=== PATIENT | male | born 1965 | race Caucasian/White ===

== ENCOUNTER 2020-01-11 22:48 | Inpatient (IN) | payer OTHER ==
[~2020-01-11] VITALS: Ht 182.9 cm; Wt 99.8 kg
[2020-01-11 22:50] VITALS: BP 132/79
[2020-01-11] MEDS ORDERED: ASPI-630 PO (23:12)
[2020-01-11] MEDS ORDERED: ONDANSETRON PF 4 MG/2 ML VIAL. IVP PRN (23:30)
[2020-01-11] MEDS ORDERED: MORPHINE SULFATE 4 MG/ML VIAL. IV PRN (23:30)
[2020-01-11] MEDS: IV NORMAL SALINE 1000ML BAG 1,000 ML IV SCH (23:40)
[2020-01-12] VITALS (13 sets, daily range): BP systolic 117–160; BP diastolic 70–100
--- NOTE | 2020-01-12 00:01 | PDOC2 ---
CONSULT Date of Consult Date of Consult DATE: 01/11/20 TIME: 23:56 Reason for Consult Reason for Consult: perforated appendicitis Referring Physician Referring Physician: Dr. Woods, Dr. Mireles Identification/Chief Complaint Chief Complaint RLQ abd pain Source Source: Chart review, Patient History of Present Illness Reason for Visit: 54 yo M developed diffuse abd pain on 01/08. Pain gradually worsened and localized to RLQ, prompted ER visit today. Pt has noted eaten since 01/08 evening. Reports positive chills and pain with movement. No previous episodes. Past Medical History Cardiovascular: No pertinent hx Past Surgical History Past Surgical History: Other (vasectomy) Family History Family History: No Significant Social History No ALCOHOL: rare Current Medications Current Medications Current Medications Ondansetron HCl (Zofran) 4 mg PRN Q6HRS PRN IV NAUSEA/VOMITING; Start 01/12/20 at 07:00; Stop 01/13/20 at 06:59; Status UNV Fentanyl Citrate (Fentanyl 2ml Vial) 25 mcg PRN Q5MIN PRN IV MILD PAIN 1-3; Start 01/12/20 at 07:00; Stop 01/13/20 at 06:59; Status UNV Fentanyl Citrate (Fentanyl 2ml Vial) 50 mcg PRN Q5MIN PRN IV MODERATE TO SEVERE PAIN; Start 01/12/20 at 07:00; Stop 01/13/20 at 06:59; Status UNV Morphine Sulfate (Morphine Sulfate) 1 mg PRN Q10MIN PRN IV SEVERE PAIN 7-10; Start 01/12/20 at 07:00; Stop 01/13/20 at 06:59; Status UNV Ringer's Solution 1,000 ml @ 30 mls/hr Q24H IV ; Start 01/12/20 at 07:00; Stop 01/12/20 at 18:59; Status UNV Lidocaine HCl (Xylocaine-Mpf 1% 2ml Vial) 2 ml PRN 1X PRN ID PRIOR TO IV START; Start 01/12/20 at 07:00; Stop 01/13/20 at 06:59; Status UNV Hydromorphone HCl (Dilaudid) 0.5 mg PRN Q10MIN PRN IV SEV PAIN, Second choice; Start 01/12/20 at 07:00; Stop 01/13/20 at 06:59; Status UNV Prochlorperazine Edisylate (Compazine) 5 mg PACU PRN PRN IV NAUSEA, MRX1; Start 01/12/20 at 07:00; Stop 01/13/20 at 06:59; Status UNV Morphine Sulfate (Morphine Sulfate) 4 mg PRN Q4HRS PRN IV PAIN; Start 01/11/20 at 23:30; Status UNV Lorazepam (Ativan Inj) 2 mg PRN Q4HRS PRN IVP ANXIETY / AGITATION; Start 01/11/20 at 23:30; Status UNV Lorazepam (Ativan Inj) 1 mg PRN Q4HRS PRN IVP ANXIETY / AGITATION; Start 01/11/20 at 23:30; Status UNV Ondansetron HCl (Zofran) 4 mg PRN Q4HRS PRN IVP NAUSEA/VOMITING; Start 01/11/20 at 23:30; Status UNV Sodium Chloride 1,000 ml @ 100 mls/hr Q10H IV Last administered on 01/11/20at 23:40; Start 01/11/20 at 23:30; Status UNV Aspirin (Aspirin Chewable) 81 mg DAILY PO ; Start 01/12/20 at 09:00; Status UNV Active Scripts Active Reported Aspirin 81 Mg Tab.chew 81 Mg PO DAILY Allergies Allergies: Coded Allergies: No Known Drug Allergies (Unverified , 01/11/20) ROS General: YES: Chills Gastrointestinal: Yes Abdominal Pain Physical Exam General: Alert, Oriented X3, Cooperative, moderate distress HEENT: Atraumatic Lungs: Normal air movement Abdomen: Soft, Other (TTP RLQ, peritoneal sign) Extremities: No clubbing, No cyanosis Skin: No rashes, No breakdown Neuro: Normal speech, Sensation intact Psych/Mental Status: Mental status NL, Mood NL Vitals VITALS Vital Signs Date Time Temp Pulse Resp B/P (MAP) Pulse Ox O2 Delivery O2 Flow Rate FiO2 01/11/20 22:50 98.3 92 20 132/79 (96) 99 Room Air 98.[address] at [facility] c/w appendicitis, signs of perforation Assessment/Plan Assessment/Plan Perforated appendicitis IV abx (rocephin, flagyl) started. TO OR for urgent laparoscopic versus open appendectomy. R/R/B/A d/w pt. Risks, including, but not limited to: bleeding, infection, damage to surrounding structures, risk of anesthesia, risk of , risk of abscess. He appears to understand, his questions are answered and he elects to proceed. Thanks for consult! ELVIRA VANN MD January 12, 2020 00:01
[2020-01-12] MEDS ORDERED: BUPIVACAINE-EPI 0.5%-1:200000 MPF 30 ML VIAL. ONE (00:32)
[2020-01-12] MEDS ORDERED: LIDOCAINE 2% PF 5 ML VIAL. ONE (00:44)
[2020-01-12] MEDS ORDERED: DEXAMETHASONE SOD PHOS 4 MG/ML VIAL ONE (00:44)
[2020-01-12] MEDS ORDERED: PROPOFOL 10 MG/ML (20ML) VIAL. IV ONE (00:44)
[2020-01-12] MEDS ORDERED: SEVOFLURANE 61 TO 120 MINUTES. IH ONE (01:48)
[2020-01-12] MEDS ORDERED: GLYCOPYRROLATE 1 MG/5 ML VIAL. ONE (01:48)
[2020-01-12] MEDS ORDERED: cefTRIAXone IV Push 1 GM VIAL. IVP SCH ×2 (04:30→21:00)
[2020-01-12] MEDS ORDERED: HYDROcodone/APAP 5/325MG 1 TAB TABLET PO PRN (04:30)
[2020-01-12] MEDS ORDERED: IV RINGERS,LACTATED 1000ML 1,000 ML IV ONE (04:30)
[2020-01-12 04:57] LABS: BASO % 0 % (0-3); EOS % 0 % (0-3); HEMATOCRIT 42.6 % (39.0-53.0); HEMOGLOBIN 14.5 g/dL (13.0-17.5); LYMPH # 0.3 x10^3/uL (1.0-4.8); LYMPH % 4 % (24-48); MEAN CORPUSCULAR HEMOGLOBIN 32 pg (25-35); MEAN CORPUSCULAR HGB CONC 34 g/dL (31-37); MEAN CORPUSCULAR VOLUME 94 fL (79-100); MONO # 0.4 x10^3/uL (0.0-1.1); MONO % 5 % (0-9); NEUT # 7.2 x10^3/uL (1.8-7.7); NEUT % 91 % (31-73); PLATELET COUNT 181 x10^3/uL (140-400); RED BLOOD COUNT 4.54 x10^6/uL (4.30-5.70); RED CELL DISTRIBUTION WIDTH 13.1 % (11.5-14.5); WHITE BLOOD COUNT 7.9 x10^3/uL (4.0-11.0)
[2020-01-12 05:13] LABS: ALBUMIN 2.8 g/dL (3.4-5.0); ALBUMIN/GLOBULIN RATIO 0.7 (1.0-1.7); CREATININE 1.2 mg/dL (0.7-1.3); GFR 62.6; POTASSIUM 4.2 mmol/L (3.5-5.1); TOTAL BILIRUBIN 0.9 mg/dL (0.2-1.0)
--- NOTE | 2020-01-12 05:43 | NUR ---
Pt arrived to unit via EMS at approx 2245 transfer from [place]. Pt states that he is in pain but refuses pain medication. VS stable. Resting on RA. consents signed for surg. Pt takes no medications and has no prior medical hx. Call light in reach, reminded pt to call before ambulating, bed in low locked position. will continue to monitor.
[2020-01-12] MEDS ORDERED: fentaNYL PF VIAL 100 MCG/2 ML VIAL IV PRN ×2 (07:00)
[2020-01-12] MEDS ORDERED: PROCHLORPERAZINE 10 MG/2 ML VIAL. IV PRN (07:00)
[2020-01-12] MEDS ORDERED: LIDOCAINE 1% PF 2 ML VIAL. ID PRN (07:00)
[2020-01-12] MEDS ORDERED: MORPHINE SULFATE 2 MG/ML VIAL. IV PRN (07:00)
[2020-01-12] MEDS ORDERED: IV RINGERS,LACTATED 1000ML 1,000 ML IV SCH (07:00)
[2020-01-12] MEDS ORDERED: HYDROmorphone 2 MG/ML VIAL IV PRN (07:00)
[2020-01-12] MEDS ORDERED: ONDANSETRON PF 4 MG/2 ML VIAL. IV PRN (07:00)
[2020-01-12] MEDS ORDERED: ACETAMINOPHEN 325 MG TABLET. PO PRN (07:30)
[2020-01-12] MEDS ORDERED: METOPROLOL TARTRATE 5 MG/5 ML VIAL. IVP PRN (09:00)
--- NOTE | 2020-01-12 09:06 | PDOC2 ---
TRINIDAD BARRY IMMIGRATION OFFICER 01/12/20 0906: CARDIAC CONSULT DATE OF CONSULT Date of Consult DATE: 01/12/20 TIME: 08:40 REASON FOR CONSULT Reason for Consult: SVT, AFIB REFERRING PHYSICIAN Referring Physician: Chuck SOURCE Source: Chart review, Patient HISTORY OF PRESENT ILLNESS HISTORY OF PRESENT ILLNESS This is a pleasant 54 yo male admitted for complains of abdominal pain. He is an active individual who does [email or web address] work and also intermittently uses [employer]. No hx of heart disease or arrhythmia. 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 This went on fro 2 days with decreased appetite, increasing abdominal pain which became diffuse but no vomiting or diarrhea. He then started shivering and felt feverish and finally was [facility] by his and was noted clammy at that point and sweaty and noted with HR in the 190s and noted as AFIB. He converted back to SR. He was then noted with acute appendicitis with microperforation and transferred to [facility] for surgery. He then had another bout of AFIB RVR periop but spontaneously converted to SR. No prior hx of CAD, valvular disease, VTE. No hx of PUD. PAST MEDICAL HISTORY Past Medical History No pertinent history PAST SURGICAL HISTORY Past Surgical History: Other (vasectomy, colonoscopy) FAMILY HISTORY Family History: Coronary Artery Disease (father in his 60s) SOCIAL HISTORY Smoke: No ALCOHOL: occassional Drugs: None Lives: with Family CURRENT MEDICATIONS CURRENT MEDICATIONS Current Medications Medications (Trade) Dose Ordered Sig/Earnest Route PRN Reason Start Time Stop Time Status Last Admin Dose Admin Sodium Chloride 1,000 ml @ 100 mls/hr Q10H IV 01/11/20 23:30 01/11/20 23:40 Ringer's Solution 1,000 ml @ 100 mls/hr Q10H ONCE IV 01/12/20 04:30 01/12/20 14:29 01/12/20 03:00 Acetaminophen (Tylenol) 650 mg PRN Q6HRS PRN PO Fever 01/12/20 07:30 01/12/20 07:40 ALLERGIES ALLERGIES: Coded Allergies: No Known Drug Allergies (Unverified , 01/11/20) ROS Review of System 14 point ROS evaluated with pertinent positives noted per HPI PHYSICAL EXAM General: Alert, Oriented X3, Cooperative, No acute distress HEENT: Atraumatic, Mucous membr. moist/pink Lungs: Clear to auscultation, Normal air movement Heart: Regular rate (SR/ST), Normal S1, Normal S2, No murmurs Abdomen: Other (S/P Lap appe) Extremities: No cyanosis, No edema Skin: No breakdown, No significant lesion Neuro: Normal speech, Sensation intact Psych/Mental Status: Mental status NL, Mood NL MUSCULOSKELETAL: Osteoarthritic changes both hands VITALS/I&O VITALS/I&O: Vital Signs Date Time Temp Pulse Resp B/P (MAP) Pulse Ox O2 Delivery O2 Flow Rate FiO2 01/12/20 07:34 102.9 110 132/82 (99) 91 Nasal Cannula 1.0 102.9 01/12/20 02:50 18 I & O 01/11/20 01/11/20 01/12/20 15:00 23:00 07:00 Intake Total 200 ml Output Total 150 ml Balance 50 ml LABS Lab: Laboratory Tests Test 01/12/20 04:30 White Blood Count 7.9 x10^3/uL (4.0-11.0) Red Blood Count 4.54 x10^6/uL (4.30-5.70) Hemoglobin 14.5 g/dL (13.0-17.5) Hematocrit 42.6 % (39.0-53.0) Mean Corpuscular Volume 94 fL (79-100) Mean Corpuscular Hemoglobin 32 pg (25-35) Mean Corpuscular Hemoglobin Concent 34 g/dL (31-37) Red Cell Distribution Width 13.1 % (11.5-14.5) Platelet Count 181 x10^3/uL (140-400) Neutrophils (%) (Auto) 91 % (31-73) H Lymphocytes (%) (Auto) 4 % (24-48) L Monocytes (%) (Auto) 5 % (0-9) Eosinophils (%) (Auto) 0 % (0-3) Basophils (%) (Auto) 0 % (0-3) Neutrophils # (Auto) 7.2 x10^3/uL (1.8-7.7) Lymphocytes # (Auto) 0.3 x10^3/uL (1.0-4.8) L Monocytes # (Auto) 0.4 x10^3/uL (0.0-1.1) Eosinophils # (Auto) 0.0 x10^3/uL (0.0-0.7) Basophils # (Auto) 0.0 x10^3/uL (0.0-0.2) Platelet Estimate Pending Sodium Level 138 mmol/L (136-145) Potassium Level 4.2 mmol/L (3.5-5.1) Chloride Level 102 mmol/L (98-107) Carbon Dioxide Level 26 mmol/L (21-32) Anion Gap 10 (6-14) Blood Urea Nitrogen 13 mg/dL (8-26) Creatinine 1.2 mg/dL (0.7-1.3) Estimated GFR (Cockcroft-Gault) 62.6 BUN/Creatinine Ratio 11 (6-20) Glucose Level 151 mg/dL (70-99) H Calcium Level 8.0 mg/dL (8.5-10.1) L Total Bilirubin 0.9 mg/dL (0.2-1.0) Aspartate Amino Transferase (AST) 29 U/L (15-37) Alanine Aminotransferase (ALT) 36 U/L (16-63) Alkaline Phosphatase 87 U/L (46-116) Total Protein 7.0 g/dL (6.4-8.2) Albumin 2.8 g/dL (3.4-5.0) L Albumin/Globulin Ratio 0.7 (1.0-1.7) L Laboratory Tests 01/12/20 04:30 Laboratory Tests 01/12/20 04:30 ASSESSMENT/PLAN ASSESSMENT/PLAN 1. Acute appendicitis with microperforation: S/P Lap appendectomy 2. PSVT: new. appears to be AFIB RVR. Likely from sympathetic surge as above. Untreated with spontaneous conversion x2 Recommendations 1. Presently with reactive sinus tach with underlying fever. Monitor rhythm Metoprolol IV PRN for any sustained tachyarrhythmias. Continue with IVF 2. BMP, Mg, TSH and will obtain TTE today HORTENCIA LOPEZ MD 01/12/20 5468: CARDIAC CONSULT ASSESSMENT/PLAN ASSESSMENT/PLAN Patient seen and examined Acute appendicitis status post lap appendectomy. Clinically improved. As per the surgical service. Episodes of rapid atrial fibrillation. As above likely from sympathetic surge. Spontaneously cardioverted. Will continue on telemetry. Beta-blockers IV as needed for tacky arrhythmias. Monitor lab and check an echocardiogram today for LV function. Thank you for allowing us to participate in the care of your patient. TRINIDAD BARRY APRN January 12, 2020 09:06 HORTENCIA LOPEZ MD January 12, 2020 16:05
[2020-01-12] MEDS: IV NORMAL SALINE 1000ML BAG 1,000 ML IV SCH ×2 (09:14→21:12)
--- NOTE | 2020-01-12 09:28 | PDOC4 ---
OPERATIVE NOTE Date: Date: January 12, 2020 Pre-Op Diagnosis: Perforated appendicitis Post-Op Diagnosis: same Procedure Performed: laparoscopic appendectomy Surgeon: Forrest Vann Anesthesia Type: GETA plus local Blood Loss: 50 Specimans Obtained: appendix Findings: grossly perforated, gangrenous appendicitis with peritonitis Complications: none Operative Note: This op note is written several hours after surgery (0200) as system was down at that time. After obtaining informed consent, patient was taken to OR, induced under GETA and prepped in the usual fashion. 5 mm port placed LLQ, supraumbilical and 12 port RUQ, all under laparoscopic guidance. Abdominal cavity was explored and noted to have diffuse purulent fluid and foul odor. Viscera was otherwise normal in appearance, although patient has large amount of visceral fat. Appendix identified off confluence of tenia. Bluntly dissected off surrounding structures. Right ureter seen in retroperitoneum and appeared to be medial and deep to area of concern. Mesoappendix carefully dissected out and divided between clips. Base of appendix divided at level of cecum with DIANA stapler. Appendix placed in bag, delivered and sent to pathology. Copious irrigation. No evidence of bleeding or other pathology noted at time of closure. Ports removed without bleeding. Fascia repaired with 0 vicryl. Skin repaired with 4 0 monocryl. Dressing placed. Patient tolerated procedure well and sent to PACU in stable condition. All counts correct. Wound class is 4. ELVIRA VANN MD January 12, 2020 09:28
[2020-01-12] MEDS ORDERED: IV RINGERS,LACTATED 500ML 500 ML IV ONE (09:30)
[2020-01-12] MEDS ORDERED: MAGNESIUM SULFATE 2GM 50 ML IV ONE ×2 (10:30→11:45)
[2020-01-12 11:09] LABS: % BANDS 22 % (0-9); % LYMPHS 1 % (24-48); % MONOS 9 % (0-10); % SEGS 68 % (35-66)
[2020-01-12 11:10] LABS: PLT ESTIMATE ADEQUATE (ADEQUATE)
--- NOTE | 2020-01-12 11:45 | CARD ---
MR#: [id number] Date of Study: 01/12/2020 Ordering Physician: TRINIDAD BARRY, Referring Physician: TRINIDAD BARRY, Tech: Ashley Bailey AMEE APPROVED REPORT EXAM: Two-dimensional and M-mode echocardiogram with Doppler and color Doppler. Other Information Quality : Good Rhythm : NSR INDICATION Atrial Fibrillation 2D DIMENSIONS RVDd3.7 (2.9-3.5cm)Left Atrium(2D)3.9 (1.6-4.0cm) IVSd1.2 (0.7-1.1cm)Aortic Root(2D)3.2 (2.0-3.7cm) LVDd4.5 (3.9-5.9cm)LVOT Diameter2.1 (1.8-2.4cm) PWd1.1 (0.7-1.1cm)LVDs2.2 (2.5-4.0cm) FS (%) 30.0 %SV77.4 ml LVEF(%)60.0 (>50%) Aortic Valve AoV Peak Cash.132.5cm/sAoV VTI21.5cm AO Peak GR.7.0mmHgLVOT Peak Cash.136.2cm/s AO Mean GR.4mmHgAVA (VMAX)3.71cm2 VICKEY (VTI)3.70cm2 Mitral Valve MV E Qbruqtuu88.0cm/sMV DECEL [id number] MV A Cosuqlhj36.4cm/sE/A Ratio0.9 Tricuspid Valve TR P. Kppnkobx480wc/sRAP IQWPYPUY5kiIw TR Peak Gr.20tbVwUKYX22vvDf Pulmonary Vein S1 Txffjlbw26.9cm/sD2 Kbyqzmag09.0cm/s LEFT VENTRICLE The left ventricle is normal size. There is mild concentric left ventricular hypertrophy. The left ve ntricular systolic function is normal. The Ejection Fraction is 55-60%. There is normal LV segmental wall motion. Transmitral Doppler flow pattern is Grade I-abnormal relaxation pattern. RIGHT VENTRICLE The right ventricle is normal size. The right ventricular systolic function is normal. ATRIA The left atrium size is normal. The right atrium size is normal. The interatrial septum is intact wit h no evidence for an atrial septal defect or patent foramen ovale as noted on 2-D or Doppler imaging. AORTIC VALVE The aortic valve is normal in structure and function. Doppler and Color Flow revealed no significant aortic regurgitation. There is no significant aortic valvular stenosis. MITRAL VALVE The mitral valve is normal in structure and function. There is no evidence of mitral valve prolapse. There is no mitral valve stenosis. Doppler and Color Flow revealed no mitral valve regurgitation note d. TRICUSPID VALVE The tricuspid valve is normal in structure and function. Doppler and Color Flow revealed trace tricus pid regurgitation. The PA pressure was estimated at 24 mmHg. There is no tricuspid valve stenosis. PULMONIC VALVE The pulmonic valve is not well visualized. Doppler and Color Flow revealed no pulmonic valvular regur gitation. There is no pulmonic valvular stenosis. GREAT VESSELS The aortic root is normal in size. The ascending aorta is mildly dilated at 3.5 cm. The IVC is normal in size and collapses >50% with inspiration. PERICARDIAL EFFUSION There is no evidence of significant pericardial effusion. Critical Notification Critical Value: No <Conclusion> The left ventricular systolic function is normal. The Ejection Fraction is 55-60%. There is normal LV segmental wall motion. Transmitral Doppler flow pattern is Grade I-abnormal relaxation pattern. Doppler and Color Flow revealed trace tricuspid regurgitation. The PA pressure was estimated at 24 mmHg. There is no evidence of significant pericardial effusion. Signed by : Raymundo Marino, Electronically Approved : 01/12/2020 11:45:38
--- NOTE | 2020-01-12 12:08 | PDOC ---
SURGICAL PROGRESS NOTE Subjective Pt feels better, hungry, HR improved Vital Signs Vital Signs Date Time Temp Pulse Resp B/P (MAP) Pulse Ox O2 Delivery O2 Flow Rate FiO2 01/12/20 10:44 98.8 96 140/88 (105) 93 Nasal Cannula 1.0 98.8 01/12/20 02:50 18 I&O Intake and Output 01/12/20 07:00 Intake Total 200 ml Output Total 150 ml Balance 50 ml Intake Oral 200 ml Output Urine Total 150 ml General: Alert, Oriented X3, Cooperative, No acute distress Abdomen: Soft, No tenderness Labs Laboratory Tests Test 01/12/20 04:30 White Blood Count 7.9 x10^3/uL (4.0-11.0) Red Blood Count 4.54 x10^6/uL (4.30-5.70) Hemoglobin 14.5 g/dL (13.0-17.5) Hematocrit 42.6 % (39.0-53.0) Mean Corpuscular Volume 94 fL (79-100) Mean Corpuscular Hemoglobin 32 pg (25-35) Mean Corpuscular Hemoglobin Concent 34 g/dL (31-37) Red Cell Distribution Width 13.1 % (11.5-14.5) Platelet Count 181 x10^3/uL (140-400) Neutrophils (%) (Auto) 91 % (31-73) Lymphocytes (%) (Auto) 4 % (24-48) Monocytes (%) (Auto) 5 % (0-9) Eosinophils (%) (Auto) 0 % (0-3) Basophils (%) (Auto) 0 % (0-3) Neutrophils # (Auto) 7.2 x10^3/uL (1.8-7.7) Lymphocytes # (Auto) 0.3 x10^3/uL (1.0-4.8) Monocytes # (Auto) 0.4 x10^3/uL (0.0-1.1) Eosinophils # (Auto) 0.0 x10^3/uL (0.0-0.7) Basophils # (Auto) 0.0 x10^3/uL (0.0-0.2) Segmented Neutrophils % 68 % (35-66) Band Neutrophils % 22 % (0-9) Lymphocytes % 1 % (24-48) Monocytes % 9 % (0-10) Platelet Estimate Adequate (ADEQUATE) Sodium Level 138 mmol/L (136-145) Potassium Level 4.2 mmol/L (3.5-5.1) Chloride Level 102 mmol/L (98-107) Carbon Dioxide Level 26 mmol/L (21-32) Anion Gap 10 (6-14) Blood Urea Nitrogen 13 mg/dL (8-26) Creatinine 1.2 mg/dL (0.7-1.3) Estimated GFR (Cockcroft-Gault) 62.6 BUN/Creatinine Ratio 11 (6-20) Glucose Level 151 mg/dL (70-99) Calcium Level 8.0 mg/dL (8.5-10.1) Magnesium Level 1.6 mg/dL (1.8-2.4) Total Bilirubin 0.9 mg/dL (0.2-1.0) Aspartate Amino Transf (AST/SGOT) 29 U/L (15-37) Alanine Aminotransferase (ALT/SGPT) 36 U/L (16-63) Alkaline Phosphatase 87 U/L (46-116) Total Protein 7.0 g/dL (6.4-8.2) Albumin 2.8 g/dL (3.4-5.0) Albumin/Globulin Ratio 0.7 (1.0-1.7) Thyroid Stimulating Hormone (TSH) 0.256 uIU/mL (0.358-3.74) Laboratory Tests Test 01/12/20 04:30 White Blood Count 7.9 x10^3/uL (4.0-11.0) Red Blood Count 4.54 x10^6/uL (4.30-5.70) Hemoglobin 14.5 g/dL (13.0-17.5) Hematocrit 42.6 % (39.0-53.0) Mean Corpuscular Volume 94 fL (79-100) Mean Corpuscular Hemoglobin 32 pg (25-35) Mean Corpuscular Hemoglobin Concent 34 g/dL (31-37) Red Cell Distribution Width 13.1 % (11.5-14.5) Platelet Count 181 x10^3/uL (140-400) Neutrophils (%) (Auto) 91 % (31-73) Lymphocytes (%) (Auto) 4 % (24-48) Monocytes (%) (Auto) 5 % (0-9) Eosinophils (%) (Auto) 0 % (0-3) Basophils (%) (Auto) 0 % (0-3) Neutrophils # (Auto) 7.2 x10^3/uL (1.8-7.7) Lymphocytes # (Auto) 0.3 x10^3/uL (1.0-4.8) Monocytes # (Auto) 0.4 x10^3/uL (0.0-1.1) Eosinophils # (Auto) 0.0 x10^3/uL (0.0-0.7) Basophils # (Auto) 0.0 x10^3/uL (0.0-0.2) Segmented Neutrophils % 68 % (35-66) Band Neutrophils % 22 % (0-9) Lymphocytes % 1 % (24-48) Monocytes % 9 % (0-10) Platelet Estimate Adequate (ADEQUATE) Sodium Level 138 mmol/L (136-145) Potassium Level 4.2 mmol/L (3.5-5.1) Chloride Level 102 mmol/L (98-107) Carbon Dioxide Level 26 mmol/L (21-32) Anion Gap 10 (6-14) Blood Urea Nitrogen 13 mg/dL (8-26) Creatinine 1.2 mg/dL (0.7-1.3) Estimated GFR (Cockcroft-Gault) 62.6 BUN/Creatinine Ratio 11 (6-20) Glucose Level 151 mg/dL (70-99) Calcium Level 8.0 mg/dL (8.5-10.1) Magnesium Level 1.6 mg/dL (1.8-2.4) Total Bilirubin 0.9 mg/dL (0.2-1.0) Aspartate Amino Transf (AST/SGOT) 29 U/L (15-37) Alanine Aminotransferase (ALT/SGPT) 36 U/L (16-63) Alkaline Phosphatase 87 U/L (46-116) Total Protein 7.0 g/dL (6.4-8.2) Albumin 2.8 g/dL (3.4-5.0) Albumin/Globulin Ratio 0.7 (1.0-1.7) Thyroid Stimulating Hormone (TSH) 0.256 uIU/mL (0.358-3.74) Problem List s/p lap appendectomy improved over preop cont abx and supportive care appreciate cards will try full liquids possible d/c home in AM with PO abx if continued improvement. ELVIRA VANN MD January 12, 2020 12:08
--- NOTE | 2020-01-12 12:22 | HP ---
ADMIT DATE: HISTORY OF PRESENT ILLNESS: The patient is a 54-year-old male patient who presented to the Emergency Room of [facility] with a complaint of malaise, nausea, intermittent severe abdominal pain, diaphoresis and tachycardia. He was extensively evaluated in the Emergency Room. Apparently, his EKG showed that he was in tachycardia and apparently was in atrial fibrillation with rapid ventricular response, treated with Cardizem drip and was reverted spontaneously to sinus rhythm without Cardizem administration or anticoagulation at that time. A CT scan of the abdomen showed that the patient has finding consistent with acute appendicitis and; therefore, the patient was transferred to [facility]. The surgical team was consulted for evaluation and definitive surgical treatment. PAST MEDICAL HISTORY: Unremarkable. PAST SURGICAL HISTORY: Also unremarkable. This is in fact his first ever surgery. ALLERGIES: He has no known drug allergies. MEDICATIONS: He is on a baby aspirin 81 mg once a day. FAMILY HISTORY: His father is still alive at the age of 82. Apparently, he has heart attack at the age of 70 for which he underwent PCI with stent deployment x 2. His mother is still alive at the age of 82 and she is healthy. SOCIAL HISTORY: He is , has a son and daughter. He never smoked. He drinks alcohol once a week. He does not use any drugs. He works for a [employer] company. REVIEW OF SYSTEMS: As per history of present illness. PHYSICAL EXAMINATION: GENERAL: On arrival to the Emergency Room, the patient was slightly tachypneic, but there was no pallor, jaundice, cyanosis or thyromegaly. No jugular venous distention. No limb edema. VITAL SIGNS: His heart rate was initially 178 that was irregularly irregular; however, he was in atrial fibrillation that spontaneously reverted to sinus rhythm. His blood pressure was 146/84, temperature was 98.4, respiratory rate was initially 24 and oxygen saturation was 95%. HEAD, EYES, EARS, NOSE AND THROAT: Showed normocephalic, atraumatic. NECK: Supple. HEART: Showed normal first and second heart sounds with no gallop, rub or murmur. CHEST: Shows central trachea, equal bilateral expansion, air entry, vesicular breath sounds. No crepitation or rhonchi. ABDOMEN: He has marked tenderness in the right lower quadrant. No pulsatile masses. Some right flank percussion pain and some localization and rebound to the right lower abdomen. NEUROLOGIC: He was awake and alert, responding appropriately. All cranial nerves intact. EXTREMITIES: He moves extremities without difficulty. He ambulates without assistance or assistive devices. EXTREMITIES: Showed no clubbing, cyanosis or edema. SKIN: Warm, diaphoretic. LABORATORY DATA: His EKG initially showed that he was in sinus tachycardia that turned out to be in atrial fibrillation, rapid ventricular response with heart rate that went up to 178. The patient reverted spontaneously to sinus rhythm without Cardizem or anticoagulation. His CT scan of the abdomen showed that the images through the lung bases demonstrate borderline cardiomegaly, minimal dependent subsegmental atelectasis seen involving both lower lobes. Small calcified granulomas are seen involving the right middle lobe and left lower lobe. The liver, spleen, pancreas and adrenal glands are within normal limits. No renal or ureteral calculus seen. There is no evidence of obstruction of either collecting system. Has mild atherosclerotic calcification of the abdominal aorta. The abdominal aorta tapers normally. The gallbladder is contracted. No free fluid or free air in the abdomen. Air and stool are seen throughout the colon. There is no evidence of bowel obstruction and appendicolith is seen within the proximal appendix. Appendix is dilated and has a thickened wall, it measures 1.5 cm in diameter. Increased density is seen within the fat surrounding the appendix. These findings are all consistent with acute appendicitis. Small extraluminal collection of air is seen within the fat surrounding the appendix consistent with microperforation, no abscess seen. The images through the pelvis demonstrates that urinary bladder is slightly contracted. Calcifications are seen within the pelvis consistent with phlebolith. A 2 cm diverticulum seen projecting posteriorly and laterally from the left aspect of the urinary bladder. No free fluid is noted. Degenerative changes are seen involving the lower thoracic and lumbar spines. With the impression that findings are consistent with acute appendicitis; therefore, the patient was transferred to [facility]. He was kept n.p.o., started on IV fluid, IV pain medication as well as antibiotic and the Cardiology team as well as the Surgical team were consulted for acute appendicitis and paroxysmal atrial fibrillation. ALVINO CASIANO MD DR: RICK/tani JOB#: [id number] / [id number]
--- NOTE | 2020-01-12 12:25 | PN ---
DATE: SUBJECTIVE: The patient is resting, slightly propped up in bed, in no apparent distress. On questioning him, he denied any complaint, in particular denied nausea or vomiting. Denied any abdominal pain. He apparently was transferred last night from [facility], where he was seen in the emergency room with acute appendicitis and paroxysmal atrial fibrillation. He apparently converted spontaneously. He was seen in consultation by Dr. Bland and underwent laparoscopic appendectomy. The patient has had this surgery successfully. He was seen in consultation by the senior contract specialist and felt that the patient has reactive sinus tachycardia with underlying fever and to monitor rhythm and metoprolol was ordered IV as needed. His TSH, magnesium were ordered as well as transthoracic echocardiogram. PHYSICAL EXAMINATION: General: When I saw him this morning, he looked well and was clearly in no apparent respiratory distress. No pallor, jaundice, cyanosis or thyromegaly. No jugular venous distention or limb edema. VITAL SIGNS: His heart rate was 98, blood pressure was 140/88, temperature was 98.8, respiratory rate was 18 and oxygen saturation was 93% on 1 liter of oxygen. HEAD, EYES, EARS, NOSE AND THROAT: Normocephalic, atraumatic. NECK: Supple. HEART: Showed normal first and second heart sounds. No gallop, rub or murmur. CHEST: Clear to auscultation. No crepitation or rhonchi. ABDOMEN: Distended, soft, nontender. NEUROLOGIC: He was awake, alert, responding appropriately. All cranial nerves intact. He moves extremities without difficulty. He ambulates without assistance or assistive devices. LABORATORY DATA: His lab work this morning showed his white cell count is down from 13,000 to 7900, hemoglobin 14.5, hematocrit 42, MCV 94 and platelet count of 181,000. Serum sodium 138, potassium 4.2, chloride 102, bicarbonate 26, anion gap of 10, BUN 13, creatinine 1.2, estimated GFR was 62 mL per minute. His glucose 151, calcium was 8, magnesium was 1.6. Total bilirubin, AST, ALT, alkaline phosphatase were normal. Total protein 7, albumin 2.8. TSH is extremely low at 0.256. ASSESSMENT: In summary, this is a 54-year-old male patient who was admitted with acute appendicitis and paroxysmal atrial fibrillation. He underwent laparoscopic appendectomy successfully. He was found also to have hypomagnesemia and probably hyperthyroidism. PLAN: To replenish his magnesium. I will also check his T3, T4, free T4 and decide on further management accordingly. ALVINO CASIANO MD DR: RICK/tani JOB#: [id number] / [id number]
[2020-01-12 12:27] LABS: BILIRUBIN,URINE NEGATIVE (NEG); CLARITY,URINE CLEAR; COLOR,URINE YELLOW; NITRITE,URINE NEGATIVE (NEG); PH,URINE 6.5 (<5.0-8.0); PROTEIN,URINE NEGATIVE (NEG-TRACE)
[2020-01-12] MEDS: ASPIRIN CHEWABLE 81 MG TABLET. PO SCH (12:33)
[2020-01-12 12:35] LABS: BACTERIA,URINE 0 /HPF (0-FEW); RBC,URINE RARE /HPF (0-2); WBC,URINE OCC /HPF (0-4)
--- NOTE | 2020-01-12 12:42 | NUR ---
SS following up with discharge planning. SS reviewed pt chart and discussed with pt RN. Pt is from home with spouse and family. Pt is s/p appendectomy on 01/12/2020 and is currently on full liquid diet. Discharge plan is to home with family when ready. SS will continue to follow for discharge planning.
[2020-01-12] MEDS: LACTOBACILLUS RHAMNOSUS GG 1 CAPSULE. PO SCH (21:10)
[2020-01-13 02:30] VITALS: BP 148/89
[2020-01-13 05:27] LABS: CALCIUM 8.5 mg/dL (8.5-10.1); CREATININE 0.9 mg/dL (0.7-1.3); GFR 87.3; MAGNESIUM 1.9 mg/dL (1.8-2.4); POTASSIUM 4.2 mmol/L (3.5-5.1)
[2020-01-13 07:00] VITALS: BP 128/81
--- NOTE | 2020-01-13 09:05 | PDOC ---
TRINIDAD BARRY JUDICIAL LAW CLERK 01/13/20 0905: CARDIO Progress Notes Date and Time Date of Service 01/13/2020 Time of Evaluation 0930 Subjective Subjective: No Chest Pain, No shortness of breath, No Palpitations Vitals Vitals Vital Signs Date Time Temp Pulse Resp B/P (MAP) Pulse Ox O2 Delivery O2 Flow Rate FiO2 01/13/20 07:00 98.2 66 16 128/81 (97) 96 Room Air 98.2 01/12/20 20:00 1.0 Weight Weight [ ] Input and Output Intake and Output Intake and Output 01/13/20 07:00 Intake Total 1700 ml Output Total 700 ml Balance 1000 ml Intake Oral 1700 ml Output Urine Total 700 ml Laboratory Labs Laboratory Tests Test 01/12/20 11:45 01/13/20 04:00 Urine Collection Type Unknown Urine Color Yellow Urine Clarity Clear Urine pH 6.5 (<5.0-8.0) Urine Specific [place] <=1.005 (1.000-1.030) Urine Protein Negative mg/dL (NEG-TRACE) Urine Glucose (UA) Negative mg/dL (NEG) Urine Ketones (Stick) 15 mg/dL (NEG) Urine Blood Negative (NEG) Urine Nitrite Negative (NEG) Urine Bilirubin Negative (NEG) Urine Urobilinogen Dipstick 1.0 mg/dL (0.2 mg/dL) Urine Leukocyte Esterase Negative (NEG) Urine RBC Rare /HPF (0-2) Urine WBC Occ /HPF (0-4) Urine Bacteria 0 /HPF (0-FEW) Sodium Level 140 mmol/L (136-145) Potassium Level 4.2 mmol/L (3.5-5.1) Chloride Level 104 mmol/L (98-107) Carbon Dioxide Level 27 mmol/L (21-32) Anion Gap 9 (6-14) Blood Urea Nitrogen 12 mg/dL (8-26) Creatinine 0.9 mg/dL (0.7-1.3) Estimated GFR (Cockcroft-Gault) 87.3 Glucose Level 128 mg/dL (70-99) Calcium Level 8.5 mg/dL (8.5-10.1) Magnesium Level 1.9 mg/dL (1.8-2.4) Physical Exam HEENT: Neck Supple W Full Motion Chest: Symmetric LUNGS: Clear to Auscultation Heart: S1S2, RRR (SR) Abdomen: Other (S/P lap appe, + BM) Extremities: No Edema, No Calf Tenderness Neurology: alert, oriented, follow commands Assessment Assessment 1. Acute appendicitis with microperforation: S/P Lap appendectomy POD#1 2. PSVT: new. appears to be AFIB RVR. Likely from sympathetic surge as above. Untreated with spontaneous conversion x2. EF and WM nml via TTE. Mg replaced Maintaining SR Recommendations 1. Monitor rhythm Metoprolol IV PRN for any sustained tachyarrhythmias. Continue with IVF 2. [facility] as an outpt, follow up in office. HORTENCIA LOPEZ MD 01/13/20 1635: CARDIO Progress Notes Assessment Assessment Patient seen and examined 1. Acute appendicitis with microperforation: S/P Lap appendectomy. As per surgery. 2. PSVT: new. appears to be AFIB RVR. Likely from sympathetic surge as above. Untreated with spontaneous conversion x2. Echo shows normal LV systolic function. Now in a sinus rhythm approximately 60. Check outpatient monitor and office follow-up. TRINIDAD BARRY APRN January 13, 2020 09:05 HORTENCIA LOPEZ MD January 13, 2020 16:35
[2020-01-13] MEDS: IV NORMAL SALINE 1000ML BAG 1,000 ML IV SCH (09:11)
[2020-01-13] MEDS: LACTOBACILLUS RHAMNOSUS GG 1 CAPSULE. PO SCH (09:13)
[2020-01-13] MEDS: ASPIRIN CHEWABLE 81 MG TABLET. PO SCH (09:13)
[2020-01-13 11:00] VITALS: BP 126/81
--- NOTE | 2020-01-13 12:30 | PDOC ---
SURGICAL PROGRESS NOTE Subjective Pt feels better, arnulfo PO Vital Signs Vital Signs Date Time Temp Pulse Resp B/P (MAP) Pulse Ox O2 Delivery O2 Flow Rate FiO2 01/13/20 11:00 98.0 60 16 126/81 (96) 93 Room Air 98.0 01/12/20 20:00 1.0 I&O Intake and Output 01/13/20 07:00 Intake Total 1700 ml Output Total 700 ml Balance 1000 ml Intake Oral 1700 ml Output Urine Total 700 ml General: Alert, Oriented X3, Cooperative, No acute distress Abdomen: Soft, No tenderness Labs Laboratory Tests Test 01/12/20 04:30 01/12/20 11:45 01/13/20 04:00 White Blood Count 7.9 x10^3/uL (4.0-11.0) Red Blood Count 4.54 x10^6/uL (4.30-5.70) Hemoglobin 14.5 g/dL (13.0-17.5) Hematocrit 42.6 % (39.0-53.0) Mean Corpuscular Volume 94 fL (79-100) Mean Corpuscular Hemoglobin 32 pg (25-35) Mean Corpuscular Hemoglobin Concent 34 g/dL (31-37) Red Cell Distribution Width 13.1 % (11.5-14.5) Platelet Count 181 x10^3/uL (140-400) Neutrophils (%) (Auto) 91 % (31-73) Lymphocytes (%) (Auto) 4 % (24-48) Monocytes (%) (Auto) 5 % (0-9) Eosinophils (%) (Auto) 0 % (0-3) Basophils (%) (Auto) 0 % (0-3) Neutrophils # (Auto) 7.2 x10^3/uL (1.8-7.7) Lymphocytes # (Auto) 0.3 x10^3/uL (1.0-4.8) Monocytes # (Auto) 0.4 x10^3/uL (0.0-1.1) Eosinophils # (Auto) 0.0 x10^3/uL (0.0-0.7) Basophils # (Auto) 0.0 x10^3/uL (0.0-0.2) Segmented Neutrophils % 68 % (35-66) Band Neutrophils % 22 % (0-9) Lymphocytes % 1 % (24-48) Monocytes % 9 % (0-10) Platelet Estimate Adequate (ADEQUATE) Sodium Level 138 mmol/L (136-145) 140 mmol/L (136-145) Potassium Level 4.2 mmol/L (3.5-5.1) 4.2 mmol/L (3.5-5.1) Chloride Level 102 mmol/L (98-107) 104 mmol/L (98-107) Carbon Dioxide Level 26 mmol/L (21-32) 27 mmol/L (21-32) Anion Gap 10 (6-14) 9 (6-14) Blood Urea Nitrogen 13 mg/dL (8-26) 12 mg/dL (8-26) Creatinine 1.2 mg/dL (0.7-1.3) 0.9 mg/dL (0.7-1.3) Estimated GFR (Cockcroft-Gault) 62.6 87.3 BUN/Creatinine Ratio 11 (6-20) Glucose Level 151 mg/dL (70-99) 128 mg/dL (70-99) Calcium Level 8.0 mg/dL (8.5-10.1) 8.5 mg/dL (8.5-10.1) Magnesium Level 1.6 mg/dL (1.8-2.4) 1.9 mg/dL (1.8-2.4) Total Bilirubin 0.9 mg/dL (0.2-1.0) Aspartate Amino Transf (AST/SGOT) 29 U/L (15-37) Alanine Aminotransferase (ALT/SGPT) 36 U/L (16-63) Alkaline Phosphatase 87 U/L (46-116) Total Protein 7.0 g/dL (6.4-8.2) Albumin 2.8 g/dL (3.4-5.0) Albumin/Globulin Ratio 0.7 (1.0-1.7) Thyroid Stimulating Hormone (TSH) 0.256 uIU/mL (0.358-3.74) Free Thyroxine 1.21 ng/dL (0.76-1.46) Thyroxine (T4) 7.0 ug/dL (4.5-12.0) Total Triiodothyronine 73 ng/dL (71-180) Urine Collection Type Unknown Urine Color Yellow Urine Clarity Clear Urine pH 6.5 (<5.0-8.0) Urine Specific [place] <=1.005 (1.000-1.030) Urine Protein Negative mg/dL (NEG-TRACE) Urine Glucose (UA) Negative mg/dL (NEG) Urine Ketones (Stick) 15 mg/dL (NEG) Urine Blood Negative (NEG) Urine Nitrite Negative (NEG) Urine Bilirubin Negative (NEG) Urine Urobilinogen Dipstick 1.0 mg/dL (0.2 mg/dL) Urine Leukocyte Esterase Negative (NEG) Urine RBC Rare /HPF (0-2) Urine WBC Occ /HPF (0-4) Urine Bacteria 0 /HPF (0-FEW) Laboratory Tests Test 01/13/20 04:00 Sodium Level 140 mmol/L (136-145) Potassium Level 4.2 mmol/L (3.5-5.1) Chloride Level 104 mmol/L (98-107) Carbon Dioxide Level 27 mmol/L (21-32) Anion Gap 9 (6-14) Blood Urea Nitrogen 12 mg/dL (8-26) Creatinine 0.9 mg/dL (0.7-1.3) Estimated GFR (Cockcroft-Gault) 87.3 Glucose Level 128 mg/dL (70-99) Calcium Level 8.5 mg/dL (8.5-10.1) Magnesium Level 1.9 mg/dL (1.8-2.4) Problem List s/p lap appendectomy doing well OK to d/c home on abx. f/u in 2 weeks ELVIRA VANN MD January 13, 2020 12:30
--- NOTE | 2020-01-13 14:31 | DS ---
DATE OF DISCHARGE: 01/13/2020 HOSPITAL COURSE: The patient is a 54-year-old male patient who presented initially to [facility] with pain in the right mid abdomen, mostly in the right lower quadrant. He was diagnosed with acute appendicitis, was transferred to [facility] where he underwent laparoscopic appendectomy. It was found to be grossly perforated gangrenous appendicitis with peritonitis. He had had an episode of atrial fibrillation with rapid ventricular response at [facility] Emergency Room; however, he converted spontaneously to sinus rhythm. He was seen in consultation by the Cardiology team who recommended quality assurance monitor final. Has remained stable. Has had no nausea, no vomiting. Has bowel movement. He is tolerating his diet. He was seen by both the surgical team and Cardiology. Both recommended that the patient can be discharged. PHYSICAL EXAMINATION: GENERAL: When I saw him this afternoon, he looked well and was clearly in no apparent respiratory distress. No pallor, jaundice, cyanosis or thyromegaly. No jugular venous distention. No limb edema. VITAL SIGNS: His heart rate was 60, blood pressure was 128/81, temperature was 98, respiratory rate was 16, and oxygen saturation was 93%. The rest of clinical exam is stable. LABORATORY DATA: His lab work showed a white cell count 7900, hemoglobin 14, hematocrit 42, MCV 94 and platelet count 281,000. His chemistry showed a serum sodium 140, potassium 4.2, chloride 104, bicarbonate 27, anion gap of 9, BUN 12, creatinine 0.9, estimated GFR was 87 mL per minute. His glucose was 128 and magnesium was 1.9. Although his TSH was low at 0.256, his total T4 and free T4 are normal and total T3 was normal. DISCHARGE MEDICATIONS: He was discharged home to go on baby aspirin that he was on before. FINAL DISCHARGE DIAGNOSES: 1. Acute appendicitis status post laparoscopic appendectomy. 2. Paroxysmal atrial fibrillation. The patient converted spontaneously to sinus rhythm. ALVINO CASIANO MD DR: RICK/tani JOB#: [id number] / [id number]
[2020-01-13 15:00] VITALS: BP 126/80
[2020-01-13] MEDS ORDERED: AMOX1TAB61 PO (16:58)
--- NOTE | 2020-01-13 18:06 | PATHOLOGY ---
[facility] Accession Number: [id number] . 01 Material submitted: . appendix - APPENDIX . 01 Clinical history: . Abd pain . 02 Diagnosis: Appendix, laparoscopic appendectomy: - Acute necrotizing (gangrenous) appendicitis, ruptured. - Fibrous obliteration of distal appendiceal lumen. (M:mahamed; 01/13/2020) R 01/13/2020 1229 Local . 02 Comment: There is no evidence of malignancy. (JENM:mahamed; 01/13/2020) . 02 Electronically signed: . Edward Benitez MD, Pathologist NPI- [id number] . 01 Gross description: . The specimen is received in formalin, labeled "Delashmutt, Severino, appendix" and consists of 2 segments of appendix measuring approximately 7.6 cm in length and up to 1.8 cm in diameter. The serosa is ragged pink-donohue, hemorrhagic with adhesions. The mesoappendix is brown necrotic measuring up to 1.4 cm in thickness. The proximal margin is inked. The proximal and distal lumens are pinpoint all the mid aspect is dilated and green-brown and possibly necrotic. [employer] sections are submitted in A1-A2. (MI; 01/12/2020) [id number] 01/12/2020 1514 Local . 02 Pathologist provided ICD-10: K35.891 . 02 CPT . 323105 Specimen Comment: A courtesy copy of this report has been sent to [phone] Specimen Comment: Report sent to Performed at: [address], [place], [place] [id number] MD Nathaniel Leonard MD Phone: [phone] Performed at: 02 [facility] [address] [place], [place] [id number] MD Edward Benitez MD Phone: [phone]
--- NOTE | 2020-01-13 19:29 | NUR ---
Discharge Note: NIESHA FRANKLIN [address] Discharge instructions and discharge home medications reviewed with Patient and a copy given. All questions have been answered and understanding verbalized. The following instructions and handouts were given: appendicitis, ab-sx, cardiac diet, cardiac event monitor, follow up with Dr. Pulido and call for follow up with Dr. Bland, numbers for both doctors, follow up with primary, antibiotic called to [facility] in [place]. Discontinued lines and drains: IV's removed, no lines present on discharge. Patient discharged to home. by wheelchair to private vehicle with .
[2020-01-13] MEDS ORDERED: AMOXICILLIN/K CLAV 875/125MG TABLET. PO SCH (21:00)
== END 2020-01-13 17:30 | disposition home or self-care (01) | DRG 853 ==
LOC: 2 NORTH 22:48
PROVIDERS: ADMIT Internal Medicine; ATTEND Internal Medicine
PROC: 0DTJ4ZZ Resection of Appendix, Percutaneous Endoscopic Approach (ICD-10-PCS; principal; 2020-01-12 00:45)
DX: A41.9 Sepsis, unspecified organism (principal); K35.32 Acute appendicitis with perforation, localized peritonitis, and gangrene, without abscess; I47.1 Supraventricular tachycardia; I96 Gangrene, not elsewhere classified; I48.0 Paroxysmal atrial fibrillation; E83.42 Hypomagnesemia; E03.9 Hypothyroidism, unspecified; Z82.49 Family history of ischemic heart disease and other diseases of the circulatory system
CPT/HCPCS: 36415; 80048; 80053; 81001; 83735; 84436; 84439; 84443; 84480; 85007; 85025; 88304; 93306; A7015; J0696; J1100; J2704; J3475; J3490; J7030; J7120; G0378